=== PATIENT | male | born 1970 | race Caucasian/White ===

== ENCOUNTER → 2018-02-23 | Outpatient (CLI) | payer OTHER, BC | LOC: RAD 08:06 | DX: M51.37 Other intervertebral disc degeneration, lumbosacral region (principal); M51.27 Other intervertebral disc displacement, lumbosacral region; M50.321 Other cervical disc degeneration at C4-C5 level; V89.2XXA Person injured in unspecified motor-vehicle accident, traffic, initial encounter ==